=== PATIENT | female | born 1960 | race Hispanic/Latino ===

== ENCOUNTER 2018-04-10 00:03 | Emergency (ER) | payer MEDICARE ==
[~2018-04-10] VITALS: Ht 157.5 cm; Wt 61.2 kg
== END 2018-04-10 01:59 ==
LOC: ER 00:03 → EDBD 00:03 → ER 01:59
DX: Z46.6 Encounter for fitting and adjustment of urinary device (principal); F32.9 Major depressive disorder, single episode, unspecified; K21.9 Gastro-esophageal reflux disease without esophagitis; Z93.3 Colostomy status; Z98.0 Intestinal bypass and anastomosis status
CPT/HCPCS: 99283